=== PATIENT | male | born 1965 | race Caucasian/White ===

== ENCOUNTER 2025-08-02 23:42 | Inpatient (IN) | payer OTHER, SELFPAY ==
[2025-08-02] VITALS (8 sets, daily range): BP systolic 110–142; BP diastolic 71–80
--- NOTE | 2025-08-02 20:38 | ED.GENMED ---
History of Present Illness
General
Chief Complaint: Failure to Thrive
Time Seen by Provider: 08/02/25 20:38
History of Present Illness
History of Present Illness:
FOCUSED PAST MEDICAL HISTORY
- High blood pressure
REVIEW OF OLD RECORDS
- I reviewed records, the patient had polypectomy on colonoscopy 2022
Note:
CHIEF COMPLAINT(S)
Severe sore throat and persistent coughing.
HISTORY OF PRESENT ILLNESS
The patient is a 59-year-old male presenting with a severe sore throat and cough. The patient reports that he has been bedridden for approximately 20 hours per day over the past week. The chief complaint, the sore throat, began two days ago.
Previously, the patient experienced severe abdominal pain and headaches. He also experienced prolonged periods of sleep, sleeping up to 20 hours in a day as recently as today. His oral temperature is slightly elevated at 100.6 Fahrenheit. He has
seen a practitioner who uses non-traditional medicine and has not been prescribed antibiotics. He reports having received 'sugar pills' among other treatments, which he believed alleviated some of his symptoms.
Despite improvements in stomach pain, which occasionally recurs depending on pressure, he is not eating due to lack of desire rather than pain. The patient was previously in quite a bit of abdominal discomfort but states that it has improved notably
over the last two days, without significant residual pain on palpation today. He has not tested for COVID, but COVID-19 and influenza are considered for evaluation.
He went to urgent care initially where he was found to be hypotensive with systolics in the 90s and was at least borderline hypoxic and was referred to the emergency department.
PAST MEDICAL AND SURGICAL HISTORY
The patient has been experiencing severe stomach pain, prolonged hours of sleep, and headaches, which have been ongoing for two years.
PHYSICAL EXAM
General: Appears somewhat weak. Elevated BMI.
Skin: Warm, dry.
Head: Normocephalic, atraumatic.
Neck: Mild uvular edema visible, without any exudate. No evidence of peritonsillar abscess.
Eye, Ears, Nose, Mouth, and Throat: Oral mucosa moist.
Cardiovascular: Normal peripheral perfusion, no edema.
Respiratory: Respirations are non-labored.
Gastrointestinal: Abdomen nondistended, no significant tenderness observed on palpation.
Back: Normal range of motion, normal alignment.
Musculoskeletal: Normal range of motion, normal strength observed.
Neurological: Alert and oriented to person, place, time, and situation, no focal neurological deficit observed.
Psychiatric: Cooperative, appropriate mood & affect.
PROBLEM LIST
Acute:
- Severe sore throat
- Persistent cough
- Mild uvular edema
Chronic:
- Severe stomach pain (improved but recurring)
- Headaches
- Excessive sleep (up to 20 hours per day)
PLAN
- Perform a rapid strep test to determine if antibiotic treatment is warranted.
- Conduct blood work for further evaluation.
- Consider tests for COVID-19 and influenza to rule out common infections associated with the symptoms.
DIFFERENTIAL DIAGNOSIS
The Differential Diagnosis includes, in no particular order and is not limited to:
1. Acute pharyngitis
2. Infectious mononucleosis
3. Influenza
4. COVID-19
5. Allergic rhinitis
6. Gastroesophageal reflux disease (GERD)
7. Tonsillitis
8. Sinusitis
9. Viral upper respiratory infection
10. Unidentified chronic fatigue syndrome
LABS
- Minimal leukocytosis with white count of 11.5, sodium slightly low at 129, albumin normal, COVID-negative, strep negative, flu negative, T. bili 1.8 but normal transaminases and normal alk phos, normal lipase
UPDATE
-SUMMARY OF ENCOUNTER
The patient is a 59-year-old male presenting to the emergency department with severe sore throat and persistent cough for two days. He reports significant sleep disturbances and difficulty breathing, especially upon exertion. Clinical examination
revealed a mildly swollen uvula and a slightly elevated oral temperature, indicating a possible viral infection. The patients white blood cell count is slightly elevated, and sodium level is a bit low at 129 mmol/L. Hemoglobin and kidney function
are within normal ranges, as well as liver enzymes except for elevated total bilirubin. A rapid strep test, influenza, and COVID-19 tests returned negative. Given the symptoms, a viral syndrome is suspected. The patients history suggests a possible
requirement for a sleep study to rule out sleep apnea. An x-ray was considered to examine any signs of pneumonia, though the decision for azithromycin was made to address potential bacterial infection. The patient expressed financial concerns
affecting potential follow-up care regarding a sleep study, due to lack of insurance coverage.
DISPOSITION
Admission.
ASSESSMENT
- Severe sore throat and persistent cough likely secondary to a viral infection.
- Possible obstructive sleep apnea, given the patients physical attributes and sleep disturbances.
- Consideration of viral syndrome or early pneumonia, but radiological confirmation pending.
PLAN
-IV antibiotics
MEDICATION RECONCILIATION
- Azithromycin prescribed for suspected bacterial infection secondary to respiratory symptoms.
INDEPENDENT REVIEW OF LABS AND INTERPRETATION OF TESTS
- My independent review of CBC shows slightly elevated white blood cell count.
- My independent review of BMP shows a low sodium level at 129 mmol/L.
- My independent review of liver enzymes reveals an isolated elevated total bilirubin level, with normal AST, ALT, and alkaline phosphatase.
- The rapid strep, influenza, and COVID-19 tests were negative.
MEDICAL DECISION MAKING
-Complexity of Data Reviewed: Chronic conditions affecting care include possible obstructive sleep apnea and prolonged excessive sleep patterns affecting overall health. Differential diagnosis considered acute pharyngitis, infectious mononucleosis,
influenza, COVID-19, and allergic rhinitis.
-Data:
Category 1
- Tests: Ordered azithromycin based on clinical evaluation and lab tests indicating possible bacterial involvement despite viral symptomatology. X-ray considered to further assess lung involvement.
Category 3
- Discussion of management with other healthcare professionals: None documented in the encounter.
-Risk:
Prescription medication was prescribed: azithromycin for suspected bacterial infection. Consideration of Admission/Observation: Escalation of care including admission/observation was considered given the complexity and risk of the patients
presenting complaint, exam findings, and their underlying comorbidities. However, ultimately I feel the patient is safe for outpatient management with close follow-up. Reasoning: Work-up reassuring, does not reveal any acute life/organ-threatening
processes, patients symptoms well controlled upon reevaluation, reexamination is reassuring, vitals are stable, patient agreeable with discharge, reliable for follow-up.
PATIENT EDUCATION AND COUNSELING
The patient was advised on the nature of his symptoms, likely due to a viral infection with possible secondary bacterial involvement, the role of azithromycin, the importance of completing the medication course, maintaining hydration, and monitoring
symptoms closely. Discussed the potential need for further evaluation of sleep apnea and the importance of follow-up with a primary care provider or pulmonology as needed. Encouraged return if symptoms worsen or fail to improve.
DIAGNOSIS
- Pneumonia
- Acute viral pharyngitis (ICD-10: J02.9)
- Possible obstructive sleep apnea, unspecified (ICD-10: G47.33)
- Hyponatremia (ICD-10: E87.1)
- The patient does appear generally weak and debilitated but seems to downplay his symptoms
- The patient initially did not want any radiation that he felt would be unnecessary and initially did not want any antibiotics
- He ultimately agreed to the chest x-ray
- Mild T. bili elevation, mild hyponatremia, and mild leukocytosis but otherwise labs unremarkable
- He does desat to about 87% while sleeping but at rest while awake his sats are in the low to mid 90%'s
- Regarding the abdominal discomfort he states that that is overall significant improved compared to earlier this week
- Lymphocytopenia noted suggestive of viral infection
- Chest x-ray does show density on the right
- very concerned and strongly prefers him to stay in the hospital tonight
Past History
Past History
ED Past Medical History: Other (Back pain)
ED Past Surgical History: Appendectomy, Cholecystectomy, Orthopedic (right knee) and Other (Vasectomy, testicular torsion reversal, knee surgery, hernia)
Social History
Tobacco: Non-smoker
Alcohol: Occasional
Personal:
Living: with family
Employment: Employed
Family History
Family History: Negative CAD
Phy Exam
Physical Exam
Physical Exam:
See HPI
Sepsis
Sepsis Screening
Sepsis Assessment: Sepsis Ruled Out
Sepsis Screen
Sepsis Screen: Sepsis Ruled Out
Date: 08/02/25
Time: 23:18
Course
Orders/Labs/Results
Orders:
Orders
08/02/25 20:54
0.9% Sodium Chloride 1000 ml [Nss] 1,000 ml IV BOLUS
Acetaminophen [Tylenol] 1,000 mg PO NOW STA
08/02/25 21:07
Acetaminophen [Tylenol] 650 mg PO NOW STA
08/02/25 21:08
COVID-19 Antigen Urgent
Source: Nasal Swab
Complete Blood Count/With Diff Urgent
Comprehensive Metabolic Panel Urgent
Lactic Acid Q4H
Comment: CANCEL 2nd LACTIC ACID IF 1st LACTIC ACID IS LESS THAN 2
Lipase Urgent
Blood Culture Q30M
RIK Source: Blood/Venous
Specimen Description:
Blood Culture Q30M
RIK Source: Blood/Venous
Specimen Description:
Influenza A+B Rapid Molecular Urgent
RIK Source: Nasal Swab
Specimen Description:
08/02/25 21:13
Rapid Strep Group A Urgent
RIK Source: Throat/Pharynx
Specimen Description:
Date Specimen was Collected: 08/02/25
Time Specimen was Collected: 21:11
08/02/25 21:51
Acetaminophen [Tylenol] 325 mg PO NOW STA
08/02/25 22:28
CR Chest - 2 Views Urgent
Comment:
Reason For Exam: fever cough
08/02/25 23:16
Azithromycin 500 mg IVPB NOW Azithromycin 500 mg/250 ml [Zithromax Infusion] 500 mg in 250 ml IV NOW
CefTRIAXone [Rocephin] 1,000 mg IV NOW STA
08/03/25 01:00
Lactic Acid Q4H
Comment: CANCEL 2nd LACTIC ACID IF 1st LACTIC ACID IS LESS THAN 2
Abnormal Lab Results
08/02/25
21:08
WBC 11.5 H 10^3/uL
(4.8-10.8)
Abs Immat Gran (auto) 0.1 H 10^3/uL
(0-0.05)
Absolute Neuts (auto) 8.5 H 10^3/uL
(1.4-6.5)
Absolute Monos (auto) 1.2 H 10^3/uL
(0.1-0.6)
Immature Gran % 0.6 H %
(0-0.5)
Lymphocytes % 13.3 L %
(20.5-51.1)
Monocytes % 10.5 H %
(1.7-9.3)
Sodium 129 L mmol/L
(135-145)
Glucose 110 H mg/dl
(70-99)
Total Bilirubin 1.8 H mg/dl
(0.2-1.3)
08/02/25 21:08
08/02/25 21:08
Vital Signs
Initial and Last Documented VS:
Initial Vital Signs
Temp Pulse Resp BP Pulse Ox
37.9 C 98 20 124/74 93
08/02/25 20:29 08/02/25 20:29 08/02/25 20:29 08/02/25 20:29 08/02/25 20:29
Last Documented Vital Signs
Temp Pulse Resp BP Pulse Ox
38.2 C H 83 19 135/80 93
08/02/25 20:45 08/02/25 22:15 08/02/25 22:00 08/02/25 22:00 08/02/25 22:21
*Pulse Oximetry
SaO2: 93
Oxygen Mode of Delivery: Room air
Patient hypoxic: yes
*Critical Care Note
Total Time (30-74mins, 75-104mins- exclusive of procedures): Not Applicable
ED Attending Note
-
Portions of this chart may have been created with voice recognition software.� Occasional wrong word or��sound alike� substitutions may have occurred due to the inherent limitations of voice recognition software.
Discharge Plan
Departure
Patient Disposition: Admit
Date of Disposition: 08/02/25
Time of Disposition: 23:16
Presentation/result/management discussed w/ accepting MD/DO: Hospitalist
Discharge Problem:
Pneumonia
Prescriptions:
No Action
No Current Medications
0
Referrals:
Fran Vogel MD [Family Provider, Internal Medicine]
Interventions
Interventions:
*Risk Screen - Suicide Last Done: 08/02/25 20:29
*General Assessment Last Done: 08/02/25 20:29
*Neglect/Abuse Screening Last Done: 08/02/25 20:29
*ED COVID-19 Vaccine History Last Done: 08/02/25 20:29
*ED Influenza Vaccine History Last Done: 08/02/25 20:29
[facility] Fall Risk Assessment Tool Last Done: 08/02/25 22:20
Discharge Date and Time
Print Language: HUNGARIAN
[2025-08-02] MEDS: NSS 1000 IV (21:05)
[2025-08-02] MEDS: TYLENOL 650 MG PO (21:07)
[2025-08-02 21:22] LABS: Hematocrit 45.8 % (39.0-52.0); Hemoglobin 15.8 g/dL (13.0-18.0); Mean Corp Hgb Conc. 34.5 g/dL (33.0-37.0); Mean Corpuscular Volume 84.7 fL (80.0-94.0); Nucleated Red Blood Cells % 0 % (-); Platelet Count 214 10^3/uL (130-400); Red Cell Dist. Width 12.5 % (11.5-14.5)
[2025-08-02 21:40] LABS: COVID-19 Antigen Negative (Negative)
[2025-08-02 21:43] LABS: ALT (SGPT) 50 U/L (0-50); AST (SGOT) 32 U/L (17-59); Albumin 4.3 g/dl (3.5-5.0); Alkaline Phosphatase 59 U/L (38-126); Blood Urea Nitrogen 17 mg/dl (9-20); Calcium 9.3 mg/dl (8.4-10.2); Carbon Dioxide 27 mmol/L (22-30); Chloride 99 mmol/L (98-107); Glucose 110 mg/dl (70-99); Lipase 64 U/L (23-300); Potassium 4.5 mmol/L (3.5-5.1); Sodium 129 mmol/L (135-145); Total Protein 7.4 g/dl (6.3-8.2); eGFR > 60.00
[2025-08-02] MEDS: TYLENOL 325 MG PO (21:56)
--- NOTE | 2025-08-02 23:17 | HPS.HSE ---
Family Physician
-
Family Physician: Fran Vogel
Chief Complaint
-
sore throat
cough
History of Present Illness
59-year-old male with PMH for HTN presenting with a severe sore throat and non productive cough for two days. for past one week, patient is sleeping more, he is lethargic. he complained of poor appetite. he is not eating or drinking. he felt
feverish. he was complaining of TIMMONS. denied dizzy or syncope.denied chest pain. he was sob today. he was having abdominal pain with diarrhea for past one week. he abdominal pain resolved. his urine was dark.
Patient received Zithromax and ceftriaxone for his pneumonia. Admitting for further management
Medical History
Past Medical History
Past Medical History: Reports Other
Additional Past Medical History:
Continue with c-collar, degenerative disc disease, hypertension, lumbar spondylolysis lumbar radiculopathy
Past Surgical History: Reports Other
Additional Past Surgical History:
Appendectomy, cholecystectomy pulmonary clear
Social History
Tobacco: Non-smoker
Alcohol: Daily
Drug: None
Personal:
Living: With Family
Family History
Family History: Not pertinent
Allergies / Home Medications
Allergies reflects when Allergies were last updated in [facility].
Home Medications with original date entered in [facility]
Allergy/Medication List:
Allergies
Allergy/AdvReac Type Severity Reaction Status Date / Time
No Known Allergies Allergy Verified 11/20/22 21:11
Home Medications
No Meds [No Current Medications] 08/17/14
Review of Systems
-
Constitutional: Reports Fever and Fatigue
EENT: Reports Sore Throat
Respiratory: Reports Cough and Trouble Breathing
Cardiac: Reports No Symptoms
Abdomen/GI: Reports No Symptoms, Abdominal Pain and Diarrhea
: Reports No Symptoms
Musculoskeletal: Reports No Symptoms
Skin: Reports No Symptoms
Neurological: Reports Headache and Weakness
Endocrine: Reports No Symptoms
Hematologic/Lymphatic: Reports No Symptoms
Psych: Reports No Symptoms
Physical Exam
Vital Signs
Vital Signs
Temp Pulse Resp BP Pulse Ox
100.7 F H 83 19 135/80 93
08/02/25 20:45 08/02/25 22:15 08/02/25 22:00 08/02/25 22:00 08/02/25 22:21
Physical Exam
General: Well Developed, Well Nourished and No Apparent Distress
HEENT: NormoCephalic, Moist mucous membranes and Atraumatic
Respiratory: Clear
Cardiac: S1/S2 and Regular Rhythm; No Murmur or Rub
GI: Soft, Non Tender, Non Distended and Normal Bowel Sounds; No Organomegaly
Rectal: Deferred by Provider
Musculoskeletal: No Clubbing, No Cyanosis and No Edema
Skin: No Rash
Neuro: AO x 3 and Nonfocal/grossly intact
Psych: Calm
Laboratory Results
-
08/02/25 21:08
08/02/25 21:08
Laboratory Results
Lactic Acid 0.9 mmol/L (0.7-2.0) 08/02/25 21:08
Total Bilirubin 1.8 mg/dl (0.2-1.3) H 08/02/25 21:08
AST 32 U/L (17-59) 08/02/25 21:08
ALT 50 U/L (0-50) 08/02/25 21:08
Alkaline Phosphatase 59 U/L (38-126) 08/02/25 21:08
Lipase 64 U/L (23-300) 08/02/25 21:08
Data Reviewed
-
Diagnostic Radiology: Report Reviewed by me
Lab Data: Labs Reviewed by me
Impression/Plan
-
# Pneumonia
- IV ceftriaxone and azithromycin
- WBCs 11.5, temp 100
- COVID-negative
-Mucinex for cough
-Obtain strep pneumonia, urine Legionella
-Blood culture sent from ER
-Tylenol as needed for fever or pain
- Chest x-ray with impression of Focal parenchymal opacity in the medial right midlung and medial right upper lung on the frontal view, probably mainly within the posterior and superior aspect of the right lower lobe, with some involvement of the
right upper lobe as well. Given the clinical history, this most likely represents pneumonia.However, mass/neoplasia is not excluded. Close imaging follow-up is recommended with treatment. If findings do not clear, a follow-up CT of the chest would
be recommended.
# Essential hypertension
- He does not know the name of his blood pressure medicine
- Hydralazine as needed
# Acute hyponatremia concern hypovolemic
- Sodium 129
- Fluids continue
- BMP in the morning
# DVT prophylax
- Lovenox
# CODE STATUS
- Full code
--- NOTE | 2025-08-02 23:18 | W.PN.UPDATE ---
Update Note
Progress Note Update
This note serves as an addendum to the H&P by [facility] call center agent FLORENTIN�
Tim Sosa
�
HPI
59M seen at ER
- severe sore throat and cough and has been bedridden for approximately 20 hours per day over the past week. T
- the sore throat, began two days ago
- prolonged periods of sleep, sleeping up to 20 hours in a day as recently as today
- PO Temp 100.6 Fahrenheit.
- FU with homepathic practitioner who uses non-traditional medicine and has not been prescribed antibiotics.
- received 'sugar pills' among other treatments, which he believed alleviated some of his symptoms.
- not tested for COVID, but COVID-19 and influenza are considered for evaluation.
He went to urgent care initially where he was found to be hypotensive with systolics in the 90s and was at least borderline hypoxic and was referred to the emergency department.
PHX
Relevant VS
08/02/25
20:29 08/02/25
20:45
Temp 100.3 F 100.7 F H
Pulse 98
Resp Rate 20
Blood pressure 124/74
SaO2 93
Oxygen Mode of Delivery Room air
PE
Obese
Gen: looks tired and fatigue
HEENT: no drooling ,
Neck: supple
Lungs: symmetric AE
Cor: RRR S1 S2
Abdomen:�soft NT NG
[employer] SAL[employer]: AAO3, NFND
MS: no edema
Psych:Nl mood
Relevant Data
08/02/25
21:08
WBC 11.5 H
Hgb 15.8
Plt Count 214
Sodium 129 L
Creatinine 0.7
eGFR > 60.00
Total Bilirubin 1.8 H
NEG LA
NEG Covid
NEG Flu
CXR:
- Focal parenchymal opacity in the medial right midlung and medial right upper lung on the frontal view, probably mainly within the posterior and superior aspect of the right lower lobe, with some involvement of the right upper lobe as well. Given
the clinical history, this most likely represents pneumonia.
- However, mass/neoplasia is not excluded. Close imaging follow-up is recommended with treatment.
- If findings do not clear, a follow-up CT of the chest would be recommended.
No prior hospitalist admission:
ASSESSMENT & PLAN
Not on any Meds
Multifocal PNA presumed CAP
Associated fever and leucocytosis
-Hemodynamically stable
- NEG Covid, NEG Flu
- check PCT
- Strep Ag
- agree with IV CFTZ and PO Z amax
- check BCx
- Pox goal above 94 % titrate with O2
- Tylenol PTN
DVT Px: LMWH
Full code
IP MS
[2025-08-02] MEDS: ROCEPHIN 1000 MG IV (23:58)
[2025-08-03] VITALS (11 sets, daily range): BP systolic 111–158; BP diastolic 66–90; BMI 35.0
[2025-08-03] MEDS: ZITHROMAX INFUSION 250 IV (00:06)
[2025-08-03 00:40] LABS: Procalcitonin 0.07 ng/ml (0.0-0.25)
[2025-08-03] MEDS: NSS 1000 IV ×3 (02:31→22:44)
[2025-08-03] MEDS: MUCINEX 600 MG PO ×2 (02:40→07:53)
[2025-08-03] MEDS: ANESTHETIC LOZENGE 1 LOZENGE PO ×5 (02:41→23:00)
[2025-08-03] MEDS: ROBITUSSIN DM 5 ML PO (05:18)
[2025-08-03] MEDS: TYLENOL 650 MG PO ×2 (05:18→19:31)
[2025-08-03 07:40] LABS: Hematocrit 43.0 % (39.0-52.0); Hemoglobin 14.7 g/dL (13.0-18.0); Mean Corp Hgb Conc. 34.2 g/dL (33.0-37.0); Mean Corpuscular Volume 86.7 fL (80.0-94.0); Platelet Count 196 10^3/uL (130-400); Red Cell Dist. Width 12.6 % (11.5-14.5)
[2025-08-03 08:06] LABS: Blood Urea Nitrogen 15 mg/dl (9-20); Calcium 8.7 mg/dl (8.4-10.2); Carbon Dioxide 27 mmol/L (22-30); Chloride 101 mmol/L (98-107); Estimated Creatinine Clearance > 125 ml/min; Glucose 115 mg/dl (70-99); Potassium 4.5 mmol/L (3.5-5.1); Sodium 133 mmol/L (135-145); eGFR > 60.00
--- NOTE | 2025-08-03 09:02 | W.PN.HOSP.TC ---
Today's Communication/Plan
-
see bold
Assessment / Plan
Assessment / Plan
HPI: 59-year-old male with PMH for HTN presenting with a severe sore throat and non productive cough for two days. for past one week, patient is sleeping more, he is lethargic. he complained of poor appetite. he is not eating or drinking. he felt
feverish. he was complaining of TIMMONS. denied dizzy or syncope.denied chest pain. he was sob today. he was having abdominal pain with diarrhea for past one week. he abdominal pain resolved. his urine was dark. Patient received Zithromax and ceftriaxone
for his pneumonia.
#Pneumonia
Influenza/COVID-negative, strep negative, check urine Legionella antigen follow-up on sputum culture
Status post Rocephin and azithromycin in the ER
Change to Rocephin and doxycycline day 2 of antibiotics
Increase Mucinex to 1200 milligrams every 12 hours, add antitussives and lozenges
Trend fever and white count
#Poor oral intake
Encouraged patient's to bring in natural protein supplements for him, patient does not want anything unnatural
#Hypovolemic hyponatremia
Improved with IV fluids
#Essential hypertension
Continue olmesartan 40 mg daily with hold parameters
#Obesity due to excess calories
Affects all aspects of care
DVT prophylaxis�subcu Lovenox
Full code
Updated on phone 08/03
Total time spent to see the patient on the floor, examine the patient, review data and lab results, discuss treatment plan with patient, nursing staff around 50 minutes.
Physical Exam
General: Obese, appears to not feel well, but no acute distress
HEENT: Normocephalic, Atraumatic, EOMI, MMM
Respiratory: Clear to Auscultation bilaterally
Cardiac: Normal S1/S2, Regular Rate and Rhythm
GI: Soft, Nontender, Nondistended, Normal Bowel Sounds
Extremities: No Clubbing, Cyanosis, or Edema
Neuro: Nonfocal/Grossly Intact
Psych: Calm, Cooperative
Anticipated Discharge: 24 - 48 hours
Subjective/Interval History
-
Date of Service: August 03, 2025
Patient complains of a sore throat, coughing. He denies shortness of breath. No chest pain, no nausea, no vomiting. He was febrile last night at 100.7.
Objective Data
-
Labs:
Laboratory Results
08/02/25 08/03/25
21:08 07:24
WBC 11.5 H 9.0
Hgb 15.8 14.7
Hct 45.8 43.0
Plt Count 214 196
Sodium 129 L 133 L
Potassium 4.5 4.5
Chloride 99 101
Carbon Dioxide 27 27
BUN 17 15
Creatinine 0.7 0.6 L
Glucose 110 H 115 H
Calcium 9.3 8.7
Total Bilirubin 1.8 H
AST 32
ALT 50
Alkaline Phosphatase 59
Vital Signs:
Vital Signs
Temp Pulse Resp BP Pulse Ox
97.8 F 81 18 116/74 95
08/03/25 08:08 08/03/25 08:08 08/03/25 08:08 08/03/25 08:08 08/03/25 08:08
I&O
08/02/25 08/03/25 08/04/25
06:59 06:59 06:59
Intake Total 480 / 480
Balance 480 / 480
[2025-08-03] MEDS: HYCODAN SYRUP 10 ML PO ×3 (12:37→23:03)
[2025-08-03] MEDS: LOVENOX 40 MG SC (17:09)
[2025-08-03] MEDS: MUCINEX 1200 MG PO (19:31)
[2025-08-03] MEDS: VIBRAMYCIN 100 MG PO (19:31)
[2025-08-03] MEDS: ROCEPHIN 1000 MG IV (22:45)
[2025-08-03] MEDS: STERILE WATER FOR INJECTION 10 ML IV (22:49)
[2025-08-04] MEDS: ANESTHETIC LOZENGE PO (02:52)
[2025-08-04] MEDS: HYCODAN SYRUP 10 ML PO (03:07)
[2025-08-04 03:20] VITALS: BP 141/78
[2025-08-04 07:12] VITALS: BP 121/74
[2025-08-04 07:22] LABS: Hematocrit 41.5 % (39.0-52.0); Hemoglobin 14.0 g/dL (13.0-18.0); Mean Corp Hgb Conc. 33.7 g/dL (33.0-37.0); Mean Corpuscular Volume 88.1 fL (80.0-94.0); Platelet Count 198 10^3/uL (130-400); Red Cell Dist. Width 12.7 % (11.5-14.5)
[2025-08-04 08:03] LABS: Blood Urea Nitrogen 7 mg/dl (9-20); Calcium 8.6 mg/dl (8.4-10.2); Carbon Dioxide 27 mmol/L (22-30); Chloride 100 mmol/L (98-107); Estimated Creatinine Clearance > 125 ml/min; Glucose 102 mg/dl (70-99); Potassium 4.6 mmol/L (3.5-5.1); Sodium 131 mmol/L (135-145); eGFR > 60.00
[2025-08-04] MEDS: VIBRAMYCIN 100 MG PO ×2 (08:31→19:38)
[2025-08-04] MEDS: TYLENOL 650 MG PO (08:31)
[2025-08-04] MEDS: ANESTHETIC LOZENGE 1 LOZENGE PO ×4 (08:31→19:38)
[2025-08-04] MEDS: MUCINEX 1200 MG PO ×2 (08:31→19:38)
[2025-08-04] MEDS: NSS 1000 IV (08:32)
[2025-08-04] MEDS: NON-FORMULARY ITEM 1 UNIT PO (08:32)
--- NOTE | 2025-08-04 09:09 | W.PN.HOSP.TC ---
Today's Communication/Plan
-
see bold
Assessment / Plan
Assessment / Plan
HPI: 59-year-old male with PMH for HTN presenting with a severe sore throat and non productive cough for two days. for past one week, patient is sleeping more, he is lethargic. he complained of poor appetite. he is not eating or drinking. he felt
feverish. he was complaining of TIMMONS. denied dizzy or syncope.denied chest pain. he was sob today. he was having abdominal pain with diarrhea for past one week. he abdominal pain resolved. his urine was dark. Patient received Zithromax and ceftriaxone
for his pneumonia.
#Pneumonia
Influenza/COVID-negative, strep negative, urine Legionella/strep antigens neg, sputum culture w/ normal resp nathan, pct normal
Status post Rocephin and azithromycin in the ER
Continue Rocephin and doxycycline day 3 of antibiotics
Continue Mucinex 1200 milligrams every 12 hours, antitussives and lozenges
Trend fever and white count
#Poor oral intake
Encouraged patient's to bring in natural protein supplements for him, patient does not want anything unnatural
#Hyponatremia
Initially thought to be hypovolemic hyponatremia
Sodium improved initially with IV fluids, now dipped
TSH/a.m. cortisol normal
He is no longer dehydrated, stop IV fluids, start fluid restriction
Trend sodium
#Essential hypertension
Continue olmesartan 40 mg daily with hold parameters
#Obesity due to excess calories
Affects all aspects of care
DVT prophylaxis�subcu Lovenox
Full code
Updated on phone 08/04
Total time spent to see the patient on the floor, examine the patient, review data and lab results, discuss treatment plan with patient, nursing staff around 40 minutes.
Physical Exam
General: Obese, appears to not feel well, but no acute distress
HEENT: Normocephalic, Atraumatic, EOMI, MMM
Respiratory: Clear to Auscultation bilaterally
Cardiac: Normal S1/S2, Regular Rate and Rhythm
GI: Soft, Nontender, Nondistended, Normal Bowel Sounds
Extremities: No Clubbing, Cyanosis, or Edema
Neuro: Nonfocal/Grossly Intact
Psych: Calm, Cooperative
Anticipated Discharge: 24 - 48 hours
Subjective/Interval History
-
Date of Service: August 04, 2025
Patient reports feeling better. His sore throat is slightly better. He denies shortness of breath. He continues to cough, and continues to be febrile. No vomiting. No chest pain.
Objective Data
-
Labs:
Laboratory Results
08/04/25
06:26
WBC 8.9
Hgb 14.0
Hct 41.5
Plt Count 198
Sodium 131 L
Potassium 4.6
Chloride 100
Carbon Dioxide 27
BUN 7 L
Creatinine 0.6 L
Glucose 102 H
Calcium 8.6
Vital Signs:
Vital Signs
Temp Pulse Resp BP Pulse Ox
100.5 F H 77 22 141/78 98
08/04/25 03:20 08/04/25 03:20 08/04/25 03:20 08/04/25 03:20 08/04/25 03:20
I&O
08/03/25 08/04/25 08/05/25
06:59 06:59 06:59
Intake Total 480 / 480 4320 / 4320
Output Total 2224 / 2225
Balance 480 / 480 2094 / 2094
[2025-08-04 10:36] LABS: Cortisol, Random 5.2 ug/dl
[2025-08-04 11:54] VITALS: BP 119/99
[2025-08-04 15:07] VITALS: BP 108/61
[2025-08-04] MEDS: LOVENOX SC (17:31)
--- NOTE | 2025-08-04 18:12 | CM ---
Addendum entered by Vanessa Salgado 08/04/25 18:26:
Correction: Pt is not on Lasix or oxygen.
Pt is on IV ABX
Original Note:
IA completed. Independent with ADLs and IADLs. Lives with , dtr, YOSHI, 2 grandchildren in a 3 story home with 6 steps at the entrance to the home. There are 2 flights of steps, 13 each but pt and live on the 1st floor. There is a full BR on
the first floor.No hx of HH, SNF,DME or home O2. No insecurities identified. Confirmed PCP, Rx, insurance.
PCP: Fran Vogel
Rx: Isac/ Rhiannon
Pt continues on IV Lasix and O2 @5 LPM
Plan: DC home, no needs. Will follow for DC needs
[2025-08-04 19:46] VITALS: BP 123/72
[2025-08-04 23:19] VITALS: BP 118/71
[2025-08-05] MEDS: ROCEPHIN 1000 MG IV (00:16)
[2025-08-05] MEDS: STERILE WATER FOR INJECTION 10 ML IV (00:17)
[2025-08-05] MEDS: ANESTHETIC LOZENGE 1 LOZENGE PO ×3 (00:17→08:42)
[2025-08-05] MEDS: HYCODAN SYRUP 10 ML PO (03:05)
[2025-08-05 03:55] VITALS: BP 133/74
[2025-08-05 07:35] VITALS: BP 135/82
[2025-08-05] MEDS: NON-FORMULARY ITEM 1 UNIT PO (08:41)
[2025-08-05] MEDS: VIBRAMYCIN 100 MG PO (08:42)
[2025-08-05] MEDS: MUCINEX 1200 MG PO (08:42)
[2025-08-05 09:00] LABS: Hematocrit 42.9 % (39.0-52.0); Hemoglobin 14.5 g/dL (13.0-18.0); Mean Corp Hgb Conc. 33.8 g/dL (33.0-37.0); Mean Corpuscular Volume 86.1 fL (80.0-94.0); Platelet Count 235 10^3/uL (130-400); Red Cell Dist. Width 12.4 % (11.5-14.5)
--- NOTE | 2025-08-05 09:30 | W.PN.HOSP.TC ---
Today's Communication/Plan
-
Discharge today
Assessment / Plan
Assessment / Plan
HPI: 59-year-old male with PMH for HTN presenting with a severe sore throat and non productive cough for two days. for past one week, patient is sleeping more, he is lethargic. he complained of poor appetite. he is not eating or drinking. he felt
feverish. he was complaining of TIMMONS. denied dizzy or syncope.denied chest pain. he was sob today. he was having abdominal pain with diarrhea for past one week. he abdominal pain resolved. his urine was dark. Patient received Zithromax and ceftriaxone
for his pneumonia.
#Pneumonia
Influenza/COVID-negative, strep negative, urine Legionella/strep antigens neg, sputum culture w/ normal resp nathan, pct normal
Status post Rocephin and azithromycin in the ER
Currently on Rocephin and doxycycline x 3 days
Fever resolved, medically stable for discharge on cefdinir and doxycycline to complete a 7-day course
Continue Mucinex and antitussives upon discharge
Trend fever and white count
#Poor oral intake
Encouraged patient's to bring in natural protein supplements for him, patient does not want anything unnatural
#Hyponatremia
Initially thought to be hypovolemic hyponatremia
Sodium improved initially with IV fluids, now dipped
TSH/a.m. cortisol normal
He is no longer dehydrated, stopped IV fluids, started fluid restriction
Sodium now normal on fluid restriction
#Essential hypertension
Continue olmesartan 40 mg daily with hold parameters
#Obesity due to excess calories
Affects all aspects of care
DVT prophylaxis�subcu Lovenox
Full code
Updated on phone 08/04
Physical Exam
General: Obese, appears to not feel well, but no acute distress
HEENT: Normocephalic, Atraumatic, EOMI, MMM
Respiratory: Clear to Auscultation bilaterally
Cardiac: Normal S1/S2, Regular Rate and Rhythm
GI: Soft, Nontender, Nondistended, Normal Bowel Sounds
Extremities: No Clubbing, Cyanosis, or Edema
Neuro: Nonfocal/Grossly Intact
Psych: Calm, Cooperative
Anticipated Discharge: Today
Subjective/Interval History
-
Date of Service: August 05, 2025
Patient reports feeling dramatically better. He denies shortness of breath, denies dyspnea with activity. Continues to have a sore throat and cough, mildly improved from admission. Fever resolved. No vomiting.
Objective Data
-
Labs:
Laboratory Results
08/05/25
07:56
WBC 6.5
Hgb 14.5
Hct 42.9
Plt Count 235
Sodium Pending
Potassium Pending
Chloride Pending
Carbon Dioxide Pending
BUN Pending
Creatinine Pending
Glucose Pending
Calcium Pending
Vital Signs:
Vital Signs
Temp Pulse Resp BP Pulse Ox
98.7 F 77 18 135/82 94
08/05/25 07:35 08/05/25 07:35 08/05/25 07:35 08/05/25 07:35 08/05/25 07:35
I&O
08/04/25 08/05/25 08/06/25
06:59 06:59 06:59
Intake Total 4320 / 4320 1260 / 1260
Output Total 2225 / 2225 1100 / 1100
Balance 2094 / 2094 160 / 160
[2025-08-05 09:37] LABS: Blood Urea Nitrogen 6 mg/dl (9-20); Calcium 9.2 mg/dl (8.4-10.2); Carbon Dioxide 29 mmol/L (22-30); Chloride 102 mmol/L (98-107); Estimated Creatinine Clearance > 125 ml/min; Glucose 98 mg/dl (70-99); Potassium 4.7 mmol/L (3.5-5.1); Sodium 135 mmol/L (135-145); eGFR > 60.00
[2025-08-05] MEDS: ANESTHETIC LOZENGE PO (11:26)
[2025-08-05 11:55] VITALS: BP 121/75
[2025-08-05 15:19] VITALS: BP 135/78
--- NOTE | 2025-08-05 15:54 | W.DCSUMMARY ---
Discharge Summary
Discharge Data
Date of Admission: 08/02/25
Date of Discharge: 08/05/25
-
Pending Results: No
Hospital Course
Discharge diagnosis:
Pneumonia
Acute hypoxic respiratory insufficiency
Poor oral intake
Hyponatremia
Essential hypertension
Obesity due to excess calories
Chest x-ray:
Focal parenchymal opacity in the medial right midlung and medial right upper lung on the frontal view, probably mainly within the posterior and superior aspect of the right lower lobe, with some involvement of the right upper lobe as well. Given the
clinical history, this most likely represents pneumonia.
Hospital course:
59-year-old male with a past medical history of essential hypertension and obesity who presented with cough, fever, and leukocytosis, and was found to have pneumonia. Patient was treated with Rocephin, doxycycline, antitussives, supportive care.
He was also found to have hyponatremia, which was initially thought to be hypovolemic hyponatremia secondary to dehydration from poor oral intake. His sodium improved with IV fluids, then worsened. Suspect there is a component of SIADH from his
pneumonia. He was treated with a fluid restriction, and his sodium normalized.
After several days, he felt remarkably better. He initially required 2 L of oxygen, and was weaned to room air. Home oxygen prescription evaluation was performed, he does not need oxygen upon discharge. He is medically stable for discharge on
cefdinir and doxycycline to complete a 7-day course. He needs to follow-up with his PCP in 1 week, and have a repeat chest x-ray in 4 weeks to document resolution of his pneumonia.
Disposition: Home self-care
Discharge planning: Required 36 minutes
Discharge Plan
-
Patient Disposition: Home (Routine Discharge)
Discharge Diagnosis/Procedures: Pneumonia, low sodium
Condition: Good
Diet: Regular
Activity: As tolerated
Driving Restrictions: As prior to admission
Activity Restrictions/Additional Instructions:
Please take your antibiotics as prescribed.
Follow-up with your family doctor in 1 week.
Referrals:
Fran Vogel MD [Family Provider, Internal Medicine] - in one week
Prescriptions:
New
Chloraseptic Sore Throat 6-10 mg Lozenge
1 doug PO Q4H PRN (Reason: sore throat) Qty: 20 0RF
guaifenesin 600 mg Tablet Extended Release 12hr
600 mg PO Q12 14 Days Qty: 28 0RF
doxycycline hyclate 100 mg Capsule
100 mg PO Q12 4 Days Qty: 8 0RF
cefdinir 300 mg Capsule
300 mg PO BID 4 Days Qty: 8 0RF
codeine-guaifenesin [Guaifenesin AC] 10-100 mg/5 mL liquid
5 ml PO Q4H PRN (Reason: Cough) Qty: 120 0RF
Continued
olmesartan 40 mg Tablet
40 mg PO DAILY
Discharge Orders:
Discharge Patient (As Directed); Ordered 08/05/25
Ordered By: Armin Higgins
Discharge Date and Time
Discharge Date/Time: 08/05/25 16:45
Print Language: HONDURAN
[2025-08-05] MEDS: OMNICEF 300 MG PO (16:02)
--- NOTE | 2025-08-05 16:36 | CM ---
Pt discharged to home, no needs
== END 2025-08-05 16:45 | disposition home or self-care (01) | DRG 194 ==
LOC: 4 EAST ACU 23:42
PROVIDERS: Registered Nurse; ADMITTING PHYSICIAN Internal Medicine; ATTENDING PHYSICIAN Family Medicine; EMERGENCY PHYSICIAN Emergency Medicine; FAMILY PHYSICIAN Internal Medicine Geriatric Medicine
DX: J18.9 Pneumonia, unspecified organism (principal); E87.1 Hypo-osmolality and hyponatremia; R09.02 Hypoxemia; E86.1 Hypovolemia; I10 Essential (primary) hypertension; E66.09 Other obesity due to excess calories; D72.810 Lymphocytopenia; Z11.52 Encounter for screening for COVID-19; Z68.35 Body mass index [BMI] 35.0-35.9, adult; Z79.899 Other long term (current) drug therapy
CPT/HCPCS: 71046; 80048; 80053; 82533; 83605; 83690; 84145; 84443; 85025; 85027; 87040; 87070; 87077; 87147; 87205; 87449; 87502; 87811; 87880; 87899; 96361; 96365; 96375; 99285